=== PATIENT | female | born 1965 | race Caucasian/White ===

== ENCOUNTER 2017-08-30 22:18 | Emergency (ER) | payer OTHER ==
[~2017-08-30] VITALS: Ht 160 cm; Wt 83.0 kg
[~2017-08-30 22:18] MED LIST: ATORVASTATIN CA40 M1 PO; HUMALOG100 U/ML SC; IBUPROFEN800 MG PO; KEFLEX500 MG PO; LEVEMIR100 U/M1 SC; LEVEMIR100 U/M1 SQ; LOP600 PO; LOT5 PO; NORCO1 TA2 PO; NOVI SQ; XANAX0.5 MG PO
[2017-08-31 01:02] VITALS: BP 139/87
== END 2017-08-31 01:02 | disposition home or self-care (01) ==
LOC: ED 22:18
DX: M25.562 Pain in left knee (principal); Z88.8 Allergy status to other drugs, medicaments and biological substances; Z90.710 Acquired absence of both cervix and uterus; E11.9 Type 2 diabetes mellitus without complications

== ENCOUNTER 2017-12-21 07:53 | Inpatient (IN) | payer OTHER ==
[~2017-12-21] VITALS: Ht 162.6 cm; Wt 83.5 kg
[2017-12-21 08:55] LABS: BASOPHIL % 0.2 % (0-2); PLATELET COUNT 273 x10^3mcL (130-400); RED CELL DISTRIBUTION WIDTH 12.2 % (11.5-14.5)
[2017-12-21 09:13] LABS: ALBUMIN 3.4 g/dL (3.4-5.0); ALKALINE PHOSPHATASE 138 U/L (46-116); ALT/SGPT 48 U/L (14-59); BILIRUBIN TOTAL 0.58 mg/dL (0.20-1.00); CALCIUM 8.9 mg/dL (8.5-10.1); CARBON DIOXIDE 24.5 mmol/L (21-32); CHLORIDE SERUM 94 mmol/L (98-107); CREATININE SERUM 0.9 mg/dL (0.6-1.0); GFR1 > 60 mL/min; LIPASE 257 IU/L (73-393); POTASSIUM SERUM 4.3 mmol/L (3.5-5.1); SODIUM SERUM 130 mmol/L (136-145); TOTAL PROTEIN, SERUM 8.2 g/dL (6.4-8.2)
[2017-12-21 09:20] LABS: UA SPECIFIC GRAVITY <=1.005 (1.005-1.035); microscopic required? YES; urine erythrocyte NEGATIVE (NEGATIVE)
[2017-12-21 09:34] LABS: GLUCOSE SERUM 683 mg/dL (74-106)
[2017-12-21 09:48] LABS: AST/SGOT 28 U/L (15-37)
[2017-12-21] MEDS ORDERED: NOVI SQ (09:54)
[2017-12-21 10:40] VITALS: BP 141/83
[2017-12-21 11:09] VITALS: BP 141/83
[2017-12-21 13:05] LABS: T3 TOTAL 0.9 ng/mL
[2017-12-21 13:19] LABS: AMYLASE 30 U/L (25-115); HDL CHOLESTEROL 36 mg/dL (40-60); MAGNESIUM 1.9 mg/dL (1.8-2.4); PHOSPHOROUS 4.1 mg/dL (2.5-4.9)
[2017-12-21 13:20] LABS: CHOLESTEROL 266 mg/dL (<200); CHOLESTEROL/HDL RATIO 7.4; TRIGLYCERIDES 1557 mg/dL (<150)
[2017-12-21 13:24] LABS: FREE T4 1.13 ng/dL (0.76-1.46); FREE THYROXINE INDEX 2.9 ug/dL (1.4-4.5); T4(THYROXINE) 8.3 ug/dL (4.7-13.3)
[2017-12-21 13:27] VITALS: BP 132/75
[2017-12-21 14:36] LABS: AMPHETAMINE QUAL UR NONE DETECTED (NEG <=1000)
[2017-12-21 17:35] VITALS: BP 140/78
[2017-12-21 21:12] VITALS: BP 108/67; BP 134/67
[2017-12-22 05:48] VITALS: BP 100/65
[2017-12-22 06:58] LABS: BASOPHIL % 0.6 % (0-2); PLATELET COUNT 235 x10^3mcL (130-400); RED CELL DISTRIBUTION WIDTH 12.6 % (11.5-14.5)
[2017-12-22 07:27] LABS: CALCIUM 8.1 mg/dL (8.5-10.1); CHLORIDE SERUM 102 mmol/L (98-107); CREATININE SERUM 0.7 mg/dL (0.6-1.0); GFR1 > 60 mL/min; GLUCOSE SERUM 449 mg/dL (74-106); MAGNESIUM 1.9 mg/dL (1.8-2.4); PHOSPHOROUS 3.9 mg/dL (2.5-4.9); SODIUM SERUM 137 mmol/L (136-145)
[2017-12-22 09:27] VITALS: BP 144/99
[2017-12-22 13:12] VITALS: BP 137/83
[2017-12-22 17:41] VITALS: BP 124/80
[2017-12-22 21:36] VITALS: BP 148/99
[2017-12-23 06:14] VITALS: BP 120/86
[2017-12-23 06:40] LABS: BASOPHIL % 0.6 % (0-2); PLATELET COUNT 230 x10^3mcL (130-400); RED CELL DISTRIBUTION WIDTH 12.5 % (11.5-14.5)
[2017-12-23 06:55] LABS: CALCIUM 7.9 mg/dL (8.5-10.1); CARBON DIOXIDE 21.6 mmol/L (21-32); CHLORIDE SERUM 105 mmol/L (98-107); CREATININE SERUM 0.5 mg/dL (0.6-1.0); GFR1 > 60 mL/min; GLUCOSE SERUM 245 mg/dL (74-106); PHOSPHOROUS 3.3 mg/dL (2.5-4.9); POTASSIUM SERUM 3.8 mmol/L (3.5-5.1); SODIUM SERUM 137 mmol/L (136-145)
[2017-12-23 07:59] VITALS: BP 116/75
[2017-12-26 08:16] VITALS: Ht 162.6 cm; Wt 83.5 kg
== END 2017-12-23 11:47 | disposition left against medical advice (07) | DRG 420 ==
LOC: ED 07:53 → DU 09:55
PROVIDERS: Emergency Medicine; Family Medicine
DX: E11.65 Type 2 diabetes mellitus with hyperglycemia (principal); N17.0 Acute kidney failure with tubular necrosis; N39.0 Urinary tract infection, site not specified; E87.1 Hypo-osmolality and hyponatremia; F41.9 Anxiety disorder, unspecified; Z79.4 Long term (current) use of insulin; Z90.710 Acquired absence of both cervix and uterus; Z82.49 Family history of ischemic heart disease and other diseases of the circulatory system; Z80.3 Family history of malignant neoplasm of breast; Z83.3 Family history of diabetes mellitus; Z68.31 Body mass index [BMI] 31.0-31.9, adult
CPT/HCPCS: 82962; 83880; 84439; J0696; J1815; J1885; J1956; J3010; J3490; J7030

== ENCOUNTER 2017-12-28 06:20 | Emergency (ER) | payer OTHER ==
[~2017-12-28] VITALS: Ht 162.6 cm; Wt 87.5 kg
[2017-12-28 06:41] VITALS: BP 136/87
== END 2017-12-28 07:27 | disposition home or self-care (01) ==
LOC: ED 06:20
DX: N39.0 Urinary tract infection, site not specified (principal); B96.20 Unspecified Escherichia coli [E. coli] as the cause of diseases classified elsewhere; E11.9 Type 2 diabetes mellitus without complications; Z88.8 Allergy status to other drugs, medicaments and biological substances

== ENCOUNTER 2018-12-10 15:28 | Emergency (ER) | payer OTHER ==
[~2018-12-10] VITALS: Ht 157.5 cm; Wt 80.7 kg
[2018-12-10 15:47] VITALS: Ht 157.5 cm; Wt 80.7 kg
[2018-12-10 17:00] VITALS: BP 147/86
== END 2018-12-10 17:00 | disposition home or self-care (01) ==
LOC: ED 15:28
DX: R10.32 Left lower quadrant pain (principal); E11.9 Type 2 diabetes mellitus without complications; F41.9 Anxiety disorder, unspecified; Z87.19 Personal history of other diseases of the digestive system; Z90.710 Acquired absence of both cervix and uterus; Z88.8 Allergy status to other drugs, medicaments and biological substances

== ENCOUNTER 2019-01-02 04:32 | Emergency (ER) | payer OTHER ==
[~2019-01-02] VITALS: Ht 160 cm; Wt 82.2 kg
[2019-01-02 04:39] VITALS: Ht 160 cm; Wt 82.2 kg
[2019-01-02 05:47] VITALS: BP 148/90
== END 2019-01-02 05:47 | disposition home or self-care (01) ==
LOC: ED 04:32
DX: S91.311D Laceration without foreign body, right foot, subsequent encounter (principal); E11.9 Type 2 diabetes mellitus without complications; F41.9 Anxiety disorder, unspecified; Z90.710 Acquired absence of both cervix and uterus; Z98.890 Other specified postprocedural states; Z88.8 Allergy status to other drugs, medicaments and biological substances; X58.XXXD Exposure to other specified factors, subsequent encounter
CPT/HCPCS: 82962; 90715

== ENCOUNTER 2019-04-01 21:32 | Emergency (ER) | payer OTHER ==
[~2019-04-01] VITALS: Ht 160 cm; Wt 82.6 kg
[2019-04-01 22:00] VITALS: Ht 160 cm; Wt 82.6 kg
[2019-04-01 22:32] LABS: BASOPHIL % 0.9 % (0-2); PLATELET COUNT 253 x10^3mcL (130-400); RED CELL DISTRIBUTION WIDTH 12.8 % (11.5-14.5)
[2019-04-01 22:35] LABS: CALCIUM 9.4 mg/dL (8.5-10.1); CARBON DIOXIDE 27.3 mmol/L (21-32); CHLORIDE SERUM 100 mmol/L (98-107); CREATININE SERUM 0.7 mg/dL (0.6-1.0); GFR1 > 60 mL/min; GLUCOSE SERUM 364 mg/dL (74-106); SODIUM SERUM 137 mmol/L (136-145)
[2019-04-01 22:48] LABS: ALBUMIN 3.6 g/dL (3.4-5.0); ALKALINE PHOSPHATASE 113 U/L (46-116); ALT/SGPT 27 U/L (14-59); AST/SGOT 9 U/L (15-37); BILIRUBIN TOTAL 0.43 mg/dL (0.20-1.00); TOTAL PROTEIN, SERUM 7.6 g/dL (6.4-8.2)
[2019-04-02 02:56] LABS: UA SPECIFIC GRAVITY 1.025 (1.005-1.035); microscopic required? YES; urine erythrocyte NEGATIVE (NEGATIVE)
[2019-04-02 04:53] VITALS: BP 129/86
== END 2019-04-02 04:53 | disposition home or self-care (01) ==
LOC: ED 21:32
PROVIDERS: Emergency Medicine
DX: R10.11 Right upper quadrant pain (principal); E11.9 Type 2 diabetes mellitus without complications; F41.9 Anxiety disorder, unspecified; Z98.890 Other specified postprocedural states; Z88.8 Allergy status to other drugs, medicaments and biological substances
CPT/HCPCS: J1885; J7030